=== PATIENT | male | born 1940 | race Caucasian/White ===

== ENCOUNTER → 2016-12-04 | Outpatient (CLI) | payer OTHER, BC | LOC: FIMAGING 07:11 | PROVIDERS: ATTEND Physician Assistant | DX: K82.9 Disease of gallbladder, unspecified (principal) ==

== ENCOUNTER → 2017-01-08 | Outpatient (CLI) | payer OTHER, BC | LOC: BHFA 13:00 | PROVIDERS: ATTEND Internal Medicine Cardiovascular Disease | DX: R07.9 Chest pain, unspecified (principal) | CPT/HCPCS: 78452; 93017; A9500 ==

== ENCOUNTER → 2017-02-20 | Outpatient (CLI) | payer OTHER, BC | LOC: FIMAGING 07:10 | PROVIDERS: ATTEND Internal Medicine | DX: M79.605 Pain in left leg (principal) ==

== ENCOUNTER → 2018-02-26 | Outpatient (CLI) | payer OTHER, BC | LOC: FIMAGING 07:24 | PROVIDERS: ATTEND Internal Medicine | DX: R93.2 Abnormal findings on diagnostic imaging of liver and biliary tract (principal); K82.9 Disease of gallbladder, unspecified ==